=== PATIENT | male | born 1960 | race Caucasian/White ===

== ENCOUNTER → 2019-01-01 | Outpatient (CLI) | payer OTHER | LOC: M.RAD 10:31 | DX: M18.9 Osteoarthritis of first carpometacarpal joint, unspecified (principal); M19.042 Primary osteoarthritis, left hand; M19.041 Primary osteoarthritis, right hand; M19.071 Primary osteoarthritis, right ankle and foot; M19.072 Primary osteoarthritis, left ankle and foot; M77.52 Other enthesopathy of left foot and ankle; M77.51 Other enthesopathy of right foot and ankle ==

== ENCOUNTER → 2019-02-23 | Outpatient (CLI) | payer OTHER ==
[~2019-02-23] MED LIST: AZULFIDINE500 MG PO; CELEBREX 200 M200 M1 PO; HYDROCODONE-AP1 EA11 PO; LIPITOR40 MG PO; NEURONTIN 300300 M1 PO; NORCO 5-325 TA1 EAC1 PO; PRINIVIL10 MG PO
--- NOTE | ~2019-02-23 | PAINCON ---
[address] [address] PAIN MANAGEMENT CONSULTATION Name: ABBI KINCAID [id number] Admission: 02/23/19 Attend Phys: Tobias Núñez MD Discharge: Date of : 64 Report #: [id number] THIS REPORT FOR: //name// CC: Breanna Núñez DATE OF SERVICE: 02/23/2019 CHIEF COMPLAINT: Arthritic pain, which is quite severe. HISTORY OF PRESENT ILLNESS: The patient is a 58-year-old gentleman who has been referred to the pain clinic. He has quite a severe case of arthritis. He has pain and discomfort in his hands. 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 He is experiencing knee pain, pain in his feet, toes, spine and other joints. His pain has been quite problematic since 2018. He does have a family history of arthritic problems. His mother had it and his brother has pain as well. He finds that his pain is somewhat overwhelming. He describes it as constant in his hands, feet, back and shoulder blades. He states that he feels like he pops and feels like he is wrapped in yan wire. Pain is worse when he is moving. Pain improves somewhat when he is sitting still. He describes it as continuous, steady, constant, rhythmic, burning, aching, crushing, throbbing, sharp and stabbing. He rates it as a 6/10 today, can rise to the level of 8-9/10. ALLERGIES: No known drug allergies. CURRENT MEDICATIONS: Hydrocodone 5/325 mg one p.o. t.i.d., Celebrex 200 mg, Lipitor 40 mg, lisinopril 10 mg and sulfasalazine 500 mg 4 times daily. PAST MEDICAL HISTORY: 1. Connective tissue disease. 2. Possible rheumatoid arthritis and osteoarthritis runs in the family. 3. Hyperlipidemia. 4. Hypertension. 5. Pre-diabetic diet. PAST SURGICAL HISTORY: Bilateral total knee replacements. 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 He is working at this juncture. states he is self-employed. REVIEW OF SYSTEMS: Generally good health, fatigue, weakness, wears glasses, ringing in the ears/hearing loss, swelling of feet, ankles, joint pain, joint stiffness, weakness of joint muscles, muscle pain and cramps, back pain, difficulty walking. LABORATORY DATA: No new laboratory values are [place] [address] PAIN MANAGEMENT CONSULTATION Name: ABBI KINCAID Room: [facility]#: [id number] Admission: 02/23/19 Attend Phys: Tobias Núñez MD Discharge: Date of : 64 Report #: [id number] interview. PAIN CLINIC ASSESSMENT AND PQRS: 1. The patient has findings somewhat consistent with osteoarthritis and is being treated by a solar system installer. 2. Height 6 feet 0 inches, weight 246 pounds, BMI is 33.5. 3. Vital Signs: Blood pressure 141/83, heart rate 71, respiratory rate 16, room air saturation is 94%, temperature 98.2. 4. Pain intensity 10. 5. Fall history: The patient has not fallen in the last 3 months. 6. Blood thinner. The patient is not on a blood thinning medication. 7. Hypertension. The patient is being treated for hypertension. 8. Opioids greater than 6 weeks. The patient received medications for the last few weeks for pain control from his primary. 9. Risk assessment tool, low for opioid use. 10. Functional assessment tool. 11. Recreational drug use: The patient denies. 12. Tobacco: The patient smokes 1 pack of cigarettes per day. The patient has a 40-pack smoking year history. 13. Alcohol. The patient drinks about 15 alcoholic beverages per week. PHYSICAL EXAMINATION: GENERAL: The patient is a well-developed, well-nourished white male. Appears his stated age. He is alert and oriented x 3. His affect is appropriate. Speech is fluent. HEENT: Normocephalic, atraumatic. Extraocular eye muscles intact. Sclerae nonicteric. Mucous membranes moist. NECK: Without adenopathy or JVD. HEART: Regular rate. ABDOMEN: Nontender. EXTREMITIES: Upper extremity muscle strength judged to be 5-/5 for the major muscle groups in the upper extremity. The patient has some soreness in the first three knuckles. He has some pain and discomfort in the mid portion of his back, which appears to be musculoskeletal. He has pain and discomfort in his knees bilaterally. He has the perception of swelling in his feet are about to "____." IMPRESSION: 1. Mixed connective tissue disease. 2. Possible rheumatoid arthritis and osteoarthritis runs in the family. 3. Hyperlipidemia. 4. Hypertension. 5. Pre-diabetic diet. RECOMMENDATIONS: We discussed treatment options. The patient states that he has noticed that his pain started and worsen over about a year ago. He feels [address] [address] PAIN MANAGEMENT CONSULTATION Name: ABBI KINCAID [facility]#: [id number] Admission: 02/23/19 Attend Phys: Tobias Núñez MD Discharge: Date of : 64 Report #: [id number] overall that it is getting worse. He has been seen by a solar system installer. He has been started on a medication, which may take some time to show efficacy. 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 He notes some swelling and discomfort in his hands and discomfort in the area of his index, middle and ring knuckles. He has pain in the lower portion of his back. He has pain in the mid portion in the lumbar portion of his back. He underwent a steroid injection in the buttocks area, noticed some increase in severe cramping per his report after the shot. He had some similar discomfort with steroids by mouth. Notes that he awoke and had difficulty sleeping after use of these steroids. He felt that his mind was going 110 miles per hour. We will have the patient try gabapentin/Neurontin. This medication has been helpful in a number of pain conditions. We will have the patient try it at 300 mg 1 p.o. t.i.d. This will be increased on a very slow pace given his other problems with medications in the past. Gabapentin has been associated with some swelling in the lower extremity. If he notes worsening of the swelling in his lower extremity he will stop taking the medication. He will also be provided hydrocodone 7.5 mg 1 p.o. q.i.d. to help with this chronic pain. Hopefully, the medications provided by the solar system installer will become more effective in the near future. We would like to thank you for letting us participate in his care. He will call us if he has any untoward problems or concerns. By: [id number]. Prince Núñez MD /nt
== END ==
LOC: M.PC 05:21
DX: M35.1 Other overlap syndromes (principal); E78.5 Hyperlipidemia, unspecified; I10 Essential (primary) hypertension; F17.210 Nicotine dependence, cigarettes, uncomplicated; Z96.653 Presence of artificial knee joint, bilateral; Z79.891 Long term (current) use of opiate analgesic; Z79.899 Other long term (current) drug therapy; Z72.89 Other problems related to lifestyle

== ENCOUNTER → 2019-03-23 | Outpatient (CLI) | payer OTHER ==
[~2019-03-23] MED LIST changes: +HYDROCODON-ACE1 EAC5 PO; +NEURONTIN 400400 M1 PO
--- NOTE | 2019-03-24 09:09 | PAINCON ---
[address] [address] PAIN MANAGEMENT CONSULTATION Name: ABBI KINCAID Room: [facility].#: [id number] Admission: 03/23/19 Attend Phys: Tobias Núñez MD Discharge: Date of : 64 Report #: [id number] THIS REPORT FOR: //name// CC: Breanna Núñez DATE OF SERVICE: 03/23/2019 CHIEF COMPLAINT: Continued significant pain and arthritic discomfort. HISTORY: The patient is a 58-year-old gentleman who has been followed in the pain clinic. As you recall, he suffers from pretty severe arthritis. He has pain in his hands and knees. 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 He rates his pain in the morning at about 4, by the time 3:30 arise he rates it as a 7-8/10. He has had no complications from the gabapentin medication. Feels that there has been slight improvement in the pain with use of the hydrocodone. He states that he is scheduled to see a branch customer service representative in the near future. He is trying to decrease the amount of tobacco that he consumes as well as decreasing use of alcoholic beverages. ALLERGIES: No known drug allergies. CURRENT MEDICATIONS: Hydrocodone 7.5/325 one p.o. t.i.d., Celebrex 200 mg, Lipitor 40 mg, lisinopril 10 mg, sulfasalazine 500 mg 4 times daily, gabapentin 300 mg 1 p.o. t.i.d. PAIN CLINIC ASSESSMENT AND PQRS: 1. The patient has some findings consistent with osteoarthritis and rheumatoid arthritis. 2. Height 6 feet 0, weight 250 pounds, BMI is 34. 3. Vital Signs: Blood pressure 143/86, heart rate 74, respiratory rate 20, room air saturation 95%, temperature is 98.8. 4. Pain intensity 4/10. 5. Fall history: The patient has not fallen in the last 3 months. 6. Blood thinner. The patient is not on a blood thinning medication. 7. Hypertension. The patient is being treated for hypertension. 8. Opioids greater than 6 weeks. The patient [facility]his primary physician. 9. Risk assessment tool, low for opioid use. 10. Functional assessment tool, low for opioid use. 11. Recreational drug use. The patient denies. 12. Tobacco: The patient smokes 1 pack of cigarettes per day. The patient has a 40 year smoking history. 13. Alcohol: The patient drinks about alcoholic beverages per week. [place] [address] PAIN MANAGEMENT CONSULTATION Name: ABBI KINCAID Room: [facility]#: [id number] Admission: 03/23/19 Attend Phys: Tobias Núñez MD Discharge: Date of : 64 Report #: [id number] PHYSICAL EXAMINATION: GENERAL: The patient is a well-developed, well-nourished white male. Appears his stated age. He is alert and oriented x 3. His affect is appropriate. Speech is fluent. HEENT: Normocephalic, atraumatic. Extraocular eye muscles intact. Sclerae nonicteric. Mucous membranes are moist. NECK: Without adenopathy or JVD. HEART: Regular rate. ABDOMEN: Nontender. EXTREMITIES: Upper extremity muscle strength judged to be 5-/5 for the major muscle groups in the upper extremity. The patient has soreness in his first three knuckles. Has pain discomfort in the mid portion of his back. Has pain and discomfort in his knees bilaterally. Has notes some swelling and perception swelling in his feet. IMPRESSION: 1. Mixed connective tissue disease. 2. Possibly rheumatoid arthritis and osteoarthritis, which runs in his family. 3. Hyperlipidemia. 4. Hypertension. 5. Prediabetic diet. RECOMMENDATIONS: We discussed treatment options with the patient. At this juncture, we will continue with his medications. The patient has not noticed a significant improvement in his pain. We will have the patient try hydrocodone 10 mg 1 p.o. t.i.d. to help with his pain. He will also be provided gabapentin 400 mg t.i.d. We will increase his dose to 1200 mg per day. It is sometimes felt that the gabapentin needs to at least fluoroscopy was brought to the level of 1800 mg before one would consider it failure. The patient will be given a script for the gabapentin 400 mg 1 p.o. t.i.d. as well as hydrocodone 10/325 one p.o. q.i.d. Hopefully, the patient will start noticed CTA of his condition. He states that he is going to follow up in the near future with his physician regarding the rheumatoid arthritis medication. We would like to thank you for letting us participate in his care. We hope he continues to improve. <ELECTRONICALLY SIGNED> By: Tobias Núñez MD 03/24/19 [id number]. Prince Núñez MD /KESHIA
== END ==
LOC: M.PC 05:24
DX: E78.5 Hyperlipidemia, unspecified (principal); I10 Essential (primary) hypertension; M35.1 Other overlap syndromes

== ENCOUNTER → 2019-04-22 | Outpatient (CLI) | payer OTHER ==
[~2019-04-22] MED LIST changes: +HYSINGLA ER40 MG PO
--- NOTE | ~2019-04-22 | PAINCON ---
[address] [address] PAIN MANAGEMENT CONSULTATION Name: ABBI KINCAID Room: [facility].#: [id number] Admission: 04/22/19 Attend Phys: Tobias Núñez MD Discharge: Date of : 64 Report #: [id number] THIS REPORT FOR: //name// CC: Breanna Núñez DATE OF SERVICE: 04/22/2019 CHIEF COMPLAINT: Pain in the hands, knees, feet, toes and back. HISTORY: The patient is a 58-year-old gentleman who has been followed in the pain clinic. As you recall, he suffers from severe arthritis. He has findings, which are present in his hands and knees. 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 Notes that his pain can be quite problematic and limiting. He is scheduled to see a heavy equipment service technician in the future. The costs of the biologic agents have been problematic. States that about he feels that financially $1300 a month is somewhat out of his range at this juncture. He continues to try to decrease use of his tobacco and rates his pain as 4/10 at this juncture. Notes that the pain continues to wax and wane over the day. ALLERGIES: No known drug allergies. CURRENT MEDICATIONS: Hydrocodone 7.5 mg 1 p.o. t.i.d., Celebrex 200 mg, Lipitor 40 mg, lisinopril 10 mg, sulfasalazine 500 mg 4 times daily, gabapentin 300 mg 1 p.o. t.i.d. PAIN CLINIC ASSESSMENT AND PQRS: 1. The patient has findings consistent with osteoarthritis and rheumatoid arthritis. 2. Height 6 feet 0 inches, weight 251 pounds, BMI is 34.2. 3. Vital signs: Blood pressure 135/79, heart rate 77, respiratory rate 16, room air saturation 94%, temperature 98.1. 4. Pain intensity 4/10. 5. Fall history: The patient has not fallen in the last 3 months. 6. Blood thinner. The patient is not on a blood thinning medication. 7. Hypertension. The patient is being treated for hypertension. 8. Opioids greater than 6 weeks. 9. The patient receives medication from [facility] his primary physician. 10. Risk assessment tool, low for opioid use. 11. Functional assessment tool. 12. Recreational drug use: The patient denies. 13. Tobacco: The patient smokes 1 pack of cigarettes per day. The patient has been smoked for last 40 years. 14. Alcohol: The patient drinks alcoholic beverages weekly. He [place] [address] PAIN MANAGEMENT CONSULTATION Name: ABBI KINCAID Room: [facility]#: [id number] Admission: 04/22/19 Attend Phys: Tobias Núñez MD Discharge: Date of : 64 Report #: [id number] PHYSICAL EXAMINATION: GENERAL: The patient is a well-developed, well-nourished white male. Appears his stated age. He is alert and oriented x 3. His affect is appropriate. Speech is fluent. HEENT: Normocephalic, atraumatic. Extraocular eye muscles intact. Sclerae nonicteric. Mucous membranes are moist. NECK: Without adenopathy or JVD. HEART: Regular rate. ABDOMEN: Nontender. EXTREMITIES: Upper extremity muscle strength judged to be 5-/5 for the major muscle groups in the upper extremity. The patient has soreness in his hands. This involves his first three knuckles. Has some discomfort in his back. Has discomfort in his knees bilaterally. Has noted some swelling and perception of swelling in his feet. IMPRESSION: 1. Mixed connective tissue disease. 2. Probable rheumatoid arthritis and osteoarthritis, which runs in his family. 3. Hyperlipidemia. 4. Hypertension. 5. Prediabetic diet. RECOMMENDATIONS: We discussed treatment options with the patient. Risks and benefits of opioid medications have been described and discussed. They can become less effective over time secondary to development of tolerance. The patient is aware that 70,000 people last year as a result of overdosing for medications. He feels that the medications are helpful. They enable him to be more active. They helped with his pain during his working hours. He does not have any problems with his sensorium. He feels that he is able to think clearly. These medications help decrease pain and discomfort. The patient has complained of his medications level dropping. We have discussed the benefits of a more confident dosing of medications. One of the newer medications Hysingla ER is a once a day dosing medication. Oftentimes, the patients what say that they have less ____ up and downs of associated with their opioids. We will write a script for this medication. Hopefully, his insurance carrier would allow him to try this medication and it would provide him benefits of a more controlled release of medication and more comfort during the course of the day. A script for Hysingla 40 mg 30 tablets have been written. He will contact his insurance carrier and hopefully they will be able to accommodate him with this medication and that he will find more benefit from it. [address] [address] PAIN MANAGEMENT CONSULTATION Name: ABBI KINCAID Room: [facility]#: [id number] Admission: 04/22/19 Attend Phys: Tobias Núñez MD Discharge: Date of : 64 Report #: [id number] We would like to thank you for letting us participate in his care. We hope he continues to improve. By: [id number]. Prince Núñez MD /KESHIA
== END ==
LOC: M.PC 05:07
DX: M35.1 Other overlap syndromes (principal); E78.5 Hyperlipidemia, unspecified; M19.90 Unspecified osteoarthritis, unspecified site; I10 Essential (primary) hypertension; E11.9 Type 2 diabetes mellitus without complications; F17.210 Nicotine dependence, cigarettes, uncomplicated; Z79.899 Other long term (current) drug therapy; Z79.891 Long term (current) use of opiate analgesic

== ENCOUNTER → 2019-05-20 | Outpatient (CLI) | payer OTHER ==
[~2019-05-20] MED LIST changes: +HUMIRA40 MG/0.8 SUBQ; +NEURONTIN600 MG PO
--- NOTE | ~2019-05-20 | PAINCON ---
[address] [address] PAIN MANAGEMENT CONSULTATION Name: ABBI KINCAID [facility] [id number] Admission: 05/20/19 Attend Phys: Tobias Núñez MD Discharge: Date of : 64 Report #: [id number] THIS REPORT FOR: //name// CC: Breanna Martines DATE OF SERVICE: 05/20/2019 PRIMARY PHYSICIAN: Dr. Breanna Sanders. CHIEF COMPLAINT: Still having a lot of arthritis pain. HISTORY: The patient is a 58-year-old gentleman who has been seen in the pain clinic because of hand, knee, feet, toes, and back pain. He returns today indicating that his pain continues to be problematic. He evaluated the long-acting hydrocodone medication. He found that it was quite expensive. He would like to continue with the current hydrocodone medication. Weather pattern has changed. It has been cold outside. He has noticed an increase in pain and discomfort. He has noted some problems with his hand. Notes that his finger or fingers can become cold. After they become cold, they then became white. It was followed by reperfusion and the hands can become a little bit more reddened. This happens in his feet as well. He has noted some increased pain and shooting pain down into his left foot. Finds that he is awakened often by the chronic pain. Notes that by the afternoon between 1 o'clock and 5 o'clock his pain becomes more problematic. Notes that the pain continues to progress as the week goes on. He feels that his pain is about 50% improved with his current medical regimen. Cold temperatures, walking, standing activities, bending and lifting can be problematic. 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 He is not having a significant problem with his medications. ALLERGIES: No known drug allergies. CURRENT MEDICATIONS: Hydrocodone 10 mg one p.o. t.i.d., Celebrex 200 mg, Lipitor 40 mg, lisinopril 10 mg, sulfasalazine 500 mg 4 times daily and gabapentin 300 mg t.i.d. PAIN CLINIC ASSESSMENT AND PQRS: 1. The patient has some findings consistent with osteoarthritis and rheumatoid arthritis. 2. Height 6 feet 0 inch, weight 250 pounds, BMI is 34.0. 3. Vital signs: Blood pressure 147/78, heart rate 69, respiratory rate 16, room air saturation is 95%, temperature 98.3. 4. Pain intensity 4/10. 5. Fall history: The patient has not fallen in the last 3 months. 6. Blood thinner. The patient is not on [place] [address] PAIN MANAGEMENT CONSULTATION Name: ABBI KINCAID Room: [facility]#: [id number] Admission: 05/20/19 Attend Phys: Tobias Núñez MD Discharge: Date of : 64 Report #: [id number] 7. Hypertension. The patient is being treated for hypertension with lisinopril. 8. Opioids greater than 6 weeks. The patient received medication from [facility] pain clinic. 9. Risk assessment tool, low for opioid use. 10. Functional assessment tool has been reviewed. 11. Recreational drug use. The patient denies use of recreational drugs. 12. Tobacco: The patient smokes a pipe. He does not vape. 13. Alcohol: The patient has decreasing his alcohol intake. PHYSICAL EXAMINATION: GENERAL: The patient is a well-developed, well-nourished white male. Appears his stated age. He is alert and oriented x 3. His affect is appropriate. Speech is fluent. HEENT: Normocephalic, atraumatic. Extraocular eye muscles intact. Sclerae nonicteric. Mucous membranes are moist. The patient is accompanied by his . NECK: Without adenopathy or JVD. HEART: Regular rate. ABDOMEN: Nontender. MUSCULOSKELETAL: Upper extremity muscle strength judged to be 5-/5 for the major muscle groups in the upper extremity. The patient notes some soreness in his hands. Has swelling and nodules in the area of the first three knuckles. Has, on occasion, noticed discoloration in his finger which turned white. States that it gets cold. It gets numb. The patient has discomfort in his knees. He has had the knee replaced. The patient has some perception of swelling in his feet. IMPRESSION: 1. Mixed connective tissue disease. 2. Probable rheumatoid arthritis and osteoarthritis-it runs in his family. 3. Hyperlipidemia. 4. Hypertension. 5. Prediabetic diet. 6. Changes of color in his fingers, which may be Raynaud's symptoms. RECOMMENDATIONS: We discussed treatment options with the patient. At this juncture, we will continue with his medication. We will increase the gabapentin slightly. We will have the patient take 600 mg tablets, he will take one 600 mg in the morning, one in midday, and a 300 mg tablet at night for a total of 1500 mg. He will try this and noticed efficacy. If he has any problems with his thinking or problems with the medication, he will decrease it and continue at the 1200 mg amount. He will also continue with Celebrex and nonsteroidal anti-inflammatory medication. He will use the hydrocodone 10 mg one p.o. every 4-6 hours p.r.n. as needed. The patient states that he is going to see his physician in the near future in regards to his arthritis. [place] [address] PAIN MANAGEMENT CONSULTATION Name: ABBI KINCAID Room: [facility].#: [id number] Admission: 05/20/19 Attend Phys: Tobias Núñez MD Discharge: Date of : 64 Report #: [id number] has any concerns. We would like to thank you for letting us participate in his care. The patient is taking the medication as prescribed. By: [id number]. Prince Núñez MD /nt
== END ==
LOC: M.PC 04:45
DX: M35.9 Systemic involvement of connective tissue, unspecified (principal); I10 Essential (primary) hypertension; E78.5 Hyperlipidemia, unspecified

== ENCOUNTER → 2019-06-15 | Outpatient (CLI) | payer OTHER ==
--- NOTE | ~2019-06-15 | PAINCON ---
[facility] [address] [place] [address] PAIN MANAGEMENT CONSULTATION Name: ABBI KINCAID Room: [facility].#: [id number] Admission: 06/15/19 Attend Phys: Tobias Núñez MD Discharge: Date of : 64 Report #: [id number] THIS REPORT FOR: //name// CC: Marlen Segura DATE OF SERVICE: 06/15/2019 CHIEF COMPLAINT: Pain because of arthritis. HISTORY: The patient is a 58-year-old gentleman who has been seen in the pain clinic because of chronic pain. He has had pain, which has been more problematic over the last year. It involves both his hands as well as his feet. He did go on vacation to [place]. He did notice an improvement in his pain while he was in [place]. He feels that the pain has increased since he has returned back to [place]. He describes the pain as bad. Rates his pain as a 4/10. He notes that with the hydrocodone it improved on his pain. His pain is about 50% problematic. 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 He has returned today with the hopes of renewing his medication. The cold weather has been more problematic for an increase in his pain and discomfort. ALLERGIES: No known drug allergies. CURRENT MEDICATIONS: Hydrocodone one p.o. t.i.d., Celebrex 200 mg, Lipitor 40 mg, lisinopril 10 mg, sulfasalazine 500 mg 4 times daily, gabapentin 300 mg t.i.d. PAIN CLINIC ASSESSMENT AND PQRS: 1. The patient does have some findings consistent with osteoarthritis and rheumatoid arthritis. 2. Height 6 feet 0 inches, weight 248 pounds, BMI is 33.0. 3. Vital signs: Blood pressure 142/84, heart rate 64, respiratory rate 16, room air saturation 95%, temperature 97.9. 4. Pain intensity 09/09. 5. Fall history: The patient has not fallen in the last 3 months. 6. Blood thinner. The patient is not on a blood thinning medication. 7. Hypertension. The patient is being treated for hypertension with lisinopril. 8. Opioids greater than 6 weeks. [facility]. 9. Risk assessment tool, low for opioid use. 10. Functional assessment tool reviewed. 11. Recreational drug use: [place] [address] PAIN MANAGEMENT CONSULTATION Name: ABBI KINCAID Room: [facility]#: [id number] Admission: 06/15/19 Attend Phys: Tobias Núñez MD Discharge: Date of : 64 Report #: [id number] 12. Tobacco: The patient denies smoking. He does not vape. He does use a pipe and is decreasing his tobacco use. 13. Alcohol. The patient denies frequent use of alcoholic beverages. PHYSICAL EXAMINATION: GENERAL: The patient is a well-developed, well-nourished white male. Appears his stated age. He is alert and oriented x 3. His affect is appropriate. Speech is fluent. HEENT: Normocephalic, atraumatic. Extraocular eye muscles intact. Sclerae nonicteric. Mucous membranes are moist. NECK: Without adenopathy or JVD. The patient is accompanied by his . HEART: Regular rate. ABDOMEN: Nontender. EXTREMITIES: Upper extremity muscle strength judged to be 5-/5 for the major muscle groups in the upper extremity. He does note some soreness in his hands. He does have nodules developing in the first three knuckles. He does occasionally note some discoloration of his fingers, which turns white when he gets cold. The patient has had a knee replacement. He does perceive some swelling in his feet. IMPRESSION: 1. Mixed connective tissue disease. 2. Probable rheumatoid arthritis with osteoarthritis, which runs in his family. 3. Hyperlipidemia. 4. Hypertension. 5. Prediabetic diet. 6. Changes in the hands from white blue to red, which is not inconsistent with Raynaud's syndrome. RECOMMENDATIONS: We will continue with the patient's current medical regimen. We have discussed the risk and benefits of opioid use. The patient has taken the medication as prescribed. He is aware that opioid medications can become less effective as time goes on. We will have the patient continue with the gabapentin medication. We will increase it to 600 mg t.i.d. The patient will also continue with the hydrocodone medication. He will take 1 tablet p.o. q.i.d. We will continue with the lisinopril; hopefully, this will be helpful with the Raynaud's type syndrome that he is having in his hands or one might consider the use of Norvasc in the future. By: [id number]. Prince Núñez MD /celso
== END ==
LOC: M.PC 08:50
DX: M06.9 Rheumatoid arthritis, unspecified (principal); I10 Essential (primary) hypertension; E78.5 Hyperlipidemia, unspecified

== ENCOUNTER → 2019-07-13 | Outpatient (CLI) | payer OTHER ==
--- NOTE | 2019-07-16 08:24 | PAINCON ---
[address] [address] PAIN MANAGEMENT CONSULTATION Name: ABBI KINCAID Room: [facility] Jesus.Kelli.#: [id number] Admission: 07/13/19 Attend Phys: Tobias Núñez MD Discharge: Date of : 64 Report #: [id number] THIS REPORT FOR: //name// cc: Breanna Sanders Maggie M. DO ~ THIS REPORT FOR: //name// CC: Marlen Martines DATE OF SERVICE: 07/13/2019 FOLLOWUP: The medication is helping, but I am still having pain. HISTORY: The patient is a 58-year-old gentleman who has been followed in the pain clinic because of chronic pain. He has pain in his knees. He has had bilateral knee replacements. Has pain associated with his hands and with his feet. This pain appears to be a pain associated with arthritis. He has some pain consistent with osteoarthritis as well as rheumatoid arthritis. He feels that his pain is improved by about 50% with his current medical use. 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 He notes that certain activities can be more problematic, particularly in the morning or as the day progresses because of the pain in his hands and feet. Does note that there is a slight amount of fogging with his medications. He feels that the gabapentin medication is helpful and would like to continue its use. States that it does not clog his ability to think clearly. He is able to work with machinery and other items without significant concern of injury. He is not feeling well today. Feels that he might have a little bit of fluid in his chest. He is scheduled to see his primary care physician today. He has returned today with the hopes of renewing his medications of hydrocodone. Notes that the cold temperature, walking, sitting, standing, lifting and bending can be problematic. ALLERGIES: No known drug allergies. CURRENT MEDICATIONS: Hydrocodone 10/325 one p.o. t.i.d., Celebrex 200 mg, Lipitor 40 mg, lisinopril 10 mg, sulfasalazine 500 mg 4 times daily, gabapentin 600 mg t.i.d. PAIN CLINIC ASSESSMENT AND PQRS: 1. The patient has findings consistent with osteoarthritis and rheumatoid arthritis. 2. Height 6 feet 0 inch, weight 251 pounds, BMI is 34.5. 3. Temperature is 98.4, saturation 95%, blood pressure 124/73, pulse is 69, respiratory rate 18, pain intensity 4-5/10[place] [address] PAIN MANAGEMENT CONSULTATION Name: ABBI KINCAID Room: [facility]#: [id number] Admission: 07/13/19 Attend Phys: Tobias Núñez MD Discharge: Date of : 64 Report #: [id number] 4. Fall history: The patient has not fallen in the last 3 months. 5. Blood thinner. The patient is not on a blood thinning medication. 6. Hypertension. The patient is being treated for hypertension. 7. Opioids greater than 6 weeks. The [facility]. 8. Risk assessment tool, low for opioid use. 9. Functional assessment tool has been reviewed. 10. Recreational drug use: The patient denies. 11. Tobacco use. The patient does not vape. He does smoke a pipe. He is trying to decrease his use of tobacco. 12. Alcohol: The patient drinks alcoholic beverages about once a week. PHYSICAL EXAMINATION: GENERAL: The patient is a well-developed, well-nourished white male. Appears his stated age. He is alert and oriented x 3. His affect is appropriate. Speech is fluent. HEENT: Normocephalic, atraumatic. Extraocular eye muscles intact. Sclerae nonicteric. Mucous membranes are moist. The patient is accompanied by his . NECK: Without adenopathy. HEART: Regular rate. ABDOMEN: Nontender. CHEST: Generally clear to auscultation. The patient has a perception of possibility of fluid in his chest. EXTREMITIES: Upper extremity muscle strength judged to be 5-/5 for the major muscle groups in the upper extremity. The patient notes soreness in his hands. Has nodules developing on his first three knuckles. Occasionally, notes some discoloration of his fingers. They turn when it gets cold. The patient has had bilateral knee replacements. Perceives some swelling in his feet, has some neuropathic type pain. IMPRESSION: 1. Mixed connective tissue disease. 2. Probable rheumatoid arthritis and osteoarthritis runs in his family. 3. Hyperlipidemia. 4. Hypertension. 5. Prediabetic diet. 6. Changes in his hands from blue to red and might be consistent with Raynaud's syndrome. RECOMMENDATIONS: We discussed treatment options with the patient. At this juncture, we will continue with his medications. He finds that the hydrocodone medication is helpful. He is able to do more during the day with its use with less pain. Rates his pain improvement as about 50% with his current medical regimen. We will continue with 10 mg 1 p.o. q.i.d. The patient will also continue with gabapentin 600 mg 1 p.o. t.i.d. He has noted some sensory [facility] [address] [place] [address] PAIN MANAGEMENT CONSULTATION Name: ABBI KINCAID Room: [facility]#: [id number] Admission: 07/13/19 Attend Phys: Tobias Núñez MD Discharge: Date of : 64 Report #: [id number] changes, meaning he feels a little bit foggy, but relatively clear minded. 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 We may consider trying Lyrica to help with the pain in the future. Hopefully, this would decrease the feeling of brain fog. We will give this medication in adequate amount of time for a number of weeks to see whether or not he is able to feel less problems with it. We would like to thank you for letting us participate in his care. A script for his medications has been provided. <ELECTRONICALLY SIGNED> By: Tobias Núñez MD 07/16/19 0824 [id number] [id number]. Prince Núñez MD /nt
== END ==
LOC: M.PC 03:23
DX: L94.8 Other specified localized connective tissue disorders (principal); I10 Essential (primary) hypertension; E78.5 Hyperlipidemia, unspecified; Z79.899 Other long term (current) drug therapy

== ENCOUNTER → 2019-08-10 | Outpatient (CLI) | payer OTHER ==
--- NOTE | 2019-08-12 13:54 | PAINCON ---
[address] [address] PAIN MANAGEMENT CONSULTATION Name: ABBI KINCAID Room: [facility].#: [id number] Admission: 08/10/19 Attend Phys: Tobias Núñez MD Discharge: Date of : 64 Report #: [id number] THIS REPORT FOR: //name// cc: Breanna Sanders Maggie M. DO ~ THIS REPORT FOR: //name// CC: Breanna Martines DATE OF SERVICE: 08/10/2019 PRIMARY CARE PHYSICIAN: Breanna Sanders DO CHIEF COMPLAINT: Pain of arthritis in the feet, knees and hands. HISTORY OF PRESENT ILLNESS: The patient is a 59-year-old gentleman, who has been followed in the pain clinic because of chronic pain. He is experiencing arthritic pain involving his knees, hands and feet. This has been problematic since 2018. He has rheumatoid arthritis. He has been seeing a rigger apprentice. He did get some new insoles made for his shoes. He notes that there has been an improvement in his foot pain. He does experience some crushing and throbbing sensation. His meds are helpful. He has less problems with the gabapentin medication. All side effects have resolved. He feels that he is about 80% improved with his pain control. Pain can be at about 4 in the morning and rise to the level of 8-9 by the end of the day. 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 He is constantly active. He has returned today with the hopes of renewing his medications. He notes that the pain increases with cold temperatures. Walking, standing, bending, and lifting can be problematic. Rest and use of his medications are efficacious. ALLERGIES: No known drug allergies. CURRENT MEDICATIONS: Hydrocodone 10/325 one p.o. t.i.d., Celebrex 200 mg, Lipitor 40 mg, lisinopril 10 mg, sulfasalazine 500 mg q.i.d., gabapentin 600 mg t.i.d. PAIN CLINIC ASSESSMENT AND PQRS: 1. The patient has findings consistent with osteoarthritis and rheumatoid arthritis involving his hands, knees and feet. 2. The patient is treated for rheumatoid arthritis. 3. Height 6 feet 0, weight 250 pounds, BMI is 34.0. 4. Vital signs: Blood pressure 129/76, heart rate 65, respiratory rate 18, room air saturation 95, temperature 98.0. 5. Pain intensity, 09/09. [place] [address] PAIN MANAGEMENT CONSULTATION Name: ABBI KINCAID Room: [facility]#: [id number] Admission: 08/10/19 Attend Phys: Tobias Núñez MD Discharge: Date of : 64 Report #: [id number] 6. Fall history: The patient has not fallen since we saw him last. 7. Blood thinner. The patient is not on a blood thinning medication. 8. Hypertension. The patient is not being treated for hypertension. 9. Opioids greater than 6 weeks. The patient [facility] from [facility]. 10. Risk assessment tool: Low for opioid use. 11. Functional assessment tool: Has been reviewed. 12. Recreational drug use: The patient denies. 13. Tobacco: The patient denies use of tobacco. He does smoke a pipe. He is trying to decrease use of tobacco. 14. Alcohol: The patient drinks alcoholic beverages once a week. PHYSICAL EXAMINATION: GENERAL: The patient is a well-developed, well-nourished white male. Appears his stated age. He is alert and oriented x 3. His affect is appropriate. Speech is fluent. HEENT: Normocephalic, atraumatic. Extraocular eye muscles intact. Sclerae nonicteric. Mucous membranes are moist. NECK: Without adenopathy or JVD. HEART: Regular rate. ABDOMEN: Nontender. CHEST: Clear to auscultation. EXTREMITIES: Upper extremity muscle strength judged to be 5-/5 for the major muscle groups in the upper extremities. The patient notes soreness in his hands. Has development of nodules on his first 3 knuckles. Occasionally notes some discoloration in his fingers. Notes that this happens when they get cold. The patient has had bilateral knee replacements. Has swelling in his feet. Has some neuropathic complaints of pain. IMPRESSION: 1. Mixed connective tissue disease. 2. Probable rheumatoid arthritis and osteoarthritis, which runs in his family. 3. Hyperlipidemia. 4. Hypertension. 5. Prediabetic diet. 6. Changes in his hands, which might be consistent with Raynaud syndrome. RECOMMENDATIONS: We discussed treatment options with the patient. At this juncture, he feels his medications are helpful. He feels that the gabapentin medication seems to be helpful. His pain is rated as an 80% improvement with use of his current medical regimen. He is aware that opioid medications can become less effective as time goes on because of development of tolerance. He is not showing any signs of addiction. He has taken the medication as prescribed. We will continue with his gabapentin at 600 mg t.i.d. The possibility of increasing to 600 mg b.i.d. and 600 mg twice a day is an option in the future. We will continue with his current medications at this juncture. [facility] [address] [place] [address] PAIN MANAGEMENT CONSULTATION Name: ABBI KINCAID Room: [facility]..#: [id number] Admission: 08/10/19 Attend Phys: Tobias Núñez MD Discharge: Date of : 64 Report #: [id number] We would like to thank you for letting us participate in his care. A script for gabapentin 600 mg 1 p.o. t.i.d. has been provided. The patient will also continue with hydrocodone 10 mg 1 p.o. q.i.d. to help with his pain control. He is able to think clearly. 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 We would like to thank you for letting us participate in his care. We hope he continues to improve. <ELECTRONICALLY SIGNED> By: Tobias Núñez MD 08/12/19 1354 0907 1257N. Prince Núñez MD /nt
== END ==
LOC: M.PC 04:40
DX: M13.869 Other specified arthritis, unspecified knee (principal); M13.849 Other specified arthritis, unspecified hand; M46.80 Other specified inflammatory spondylopathies, site unspecified; E78.5 Hyperlipidemia, unspecified; M35.9 Systemic involvement of connective tissue, unspecified; I10 Essential (primary) hypertension; F11.20 Opioid dependence, uncomplicated; Z72.4 Inappropriate diet and eating habits; Z79.84 Long term (current) use of oral hypoglycemic drugs; Z79.899 Other long term (current) drug therapy

== ENCOUNTER → 2019-09-07 | Outpatient (CLI) | payer OTHER ==
--- NOTE | 2019-09-08 08:28 | PAINCON ---
[address] [address] PAIN MANAGEMENT CONSULTATION Name: ABBI KINCAID [facility] [id number] Admission: 09/07/19 Attend Phys: Tobias Núñez MD Discharge: Date of : 64 Report #: [id number] THIS REPORT FOR: //name// cc: Breanna Sanders Maggie M. DO ~ THIS REPORT FOR: //name// CC: Breanna Núñez DATE OF SERVICE: 09/07/2019 CHIEF COMPLAINT: "I have been working about 10 hours a day because of the fewer people on the job." HISTORY: The patient is a 59-year-old gentleman who has been followed in the pain clinic because of chronic pain. As you may recall, he suffers from osteoarthritis. He has had both knees replaced. He also suffers from rheumatoid arthritis and has been followed by a furnace cooler. He has been much busier given the coronavirus situation. 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 He has had to work longer hours. As a result of the worsening of his pain he finds himself as in an unpleasant placed because of the severity of his pain. He notes that his pain continues to increase as time as the day goes on. He rates his pain as 10/10 by the time he gets home. He has found himself less energetic because of the chronic pain. He feels that the medication continues to be helpful. He would like to have his medications renewed. He is not having any problems with his medications. They continue to be beneficial. ALLERGIES: No known drug allergies. CURRENT MEDICATIONS: Hydrocodone 10/325 mg one p.o. t.i.d., Celebrex 200 mg, Lipitor 40 mg, lisinopril 100 mg, sulfasalazine 500 mg q.i.d., and gabapentin 600 mg t.i.d. PAIN CLINIC ASSESSMENT AND PQRS: 1. The patient has some findings of osteoarthritis and rheumatoid arthritis involving his hands, knees and feet. The patient is being treated by furnace cooler. 2. Height 6 feet 0, weight 253 pounds, BMI is 33.4. 3. Vital signs: Blood pressure 137/81, heart rate 72, respiratory rate 16, room air saturation 95%, temperature 97.9. 4. Pain score 7/10. 5. Fall history: The patient has not fallen in the last 3 months. 6. Blood thinner. The patient is not on a blood thinning medication. 7. Hypertension. The patient [place] [address] PAIN MANAGEMENT CONSULTATION Name: ABBI KINCAID Room: [facility]#: [id number] Admission: 09/07/19 Attend Phys: Tobias Núñez MD Discharge: Date of : 64 Report #: [id number] 8. Opioids greater than 6 weeks. The patient receives his medication from the pain clinic. 9. Risk assessment tool, low for opioid use. 10. Functional assessment tool reviewed. 11. Recreational drug use. The patient denies use of recreational drugs. 12. Tobacco: The patient does smoke. 13. Alcohol: The patient is decreasing his alcohol use. He has not drunk in the last month. Usually, he drinks about once weekly. PHYSICAL EXAMINATION: GENERAL: The patient is a well-developed, well-nourished white male. Appears his stated age. He is alert and oriented x 3. His affect is appropriate. Speech is fluent. He is unaccompanied. HEENT: Normocephalic, atraumatic. Extraocular eye muscles intact. Sclerae nonicteric. Mucous membranes are moist. NECK: Without adenopathy or JVD. HEART: Regular rate. ABDOMEN: Nontender. LUNGS: Clear to auscultation. EXTREMITIES: Upper extremity muscle strength judged to be 5-/5 for the major muscle groups in the upper extremity. The patient has soreness in his hands. He has begun to develop nodules in his third knuckles. He notes some discoloration occasionally of his fingers. He has had bilateral knee replacements. He complains of some swelling in his feet. He has some neuropathic complaints as well. IMPRESSION: 1. Mixed connective tissue disease. 2. Probable rheumatoid arthritis and osteoarthritis, which runs in his family. 3. Hyperlipidemia. 4. Hypertension. 5. Pre-diabetic diet. 6. Changes in the hand consistent with Raynaud's syndrome in the winter. RECOMMENDATIONS: We discussed treatment options with the patient. At this juncture, we will continue with his current medications. A script for his medications has been provided. He will continue with gabapentin 600 mg 1 p.o. t.i.d. The patient will also continue with hydrocodone 10/325 mg one p.o. 4 - 6 hours p.r.n., total of 120 tablets have been provided. The patient will call us if he has any concerns. He is aware that opioid medications can become less effective as time goes on secondary to the development of tolerance. At this point, we will continue with his medications. He will call us if he has any [facility] [address] [place] [address] PAIN MANAGEMENT CONSULTATION Name: GALE KINCAIDBea Bird Room: [facility]#: [id number] Admission: 09/07/19 Attend Phys: Tobias Núñez MD Discharge: Date of : 64 Report #: [id number] concerns. The patient will continue to monitor with the CDC recommendations to decrease the likelihood of being struck down with COVID-19. <ELECTRONICALLY SIGNED> By: Tobias Núñez MD 09/08/19 0828 1341 1356N. Prince Núñez MD /nt
== END ==
LOC: M.PC 04:54
DX: G89.4 Chronic pain syndrome (principal); M19.90 Unspecified osteoarthritis, unspecified site; M35.1 Other overlap syndromes; E78.5 Hyperlipidemia, unspecified; I10 Essential (primary) hypertension; Z79.899 Other long term (current) drug therapy

== ENCOUNTER → 2019-10-05 | Outpatient (CLI) | payer OTHER ==
--- NOTE | 2019-10-13 17:08 | PAINCON ---
[facility] [address] [place] [address] PAIN MANAGEMENT CONSULTATION Name: ABBI KINCAID Room: [facility] KARLOS JesusFrancis.#: [id number] Admission: 10/05/19 Attend Phys: Tobias Núñez MD Discharge: Date of : 64 Report #: [id number] THIS REPORT FOR: //name// cc: Breanna Sanders Maggie M. DO ~ THIS REPORT FOR: //name// CC: Breanna Núñez DATE OF SERVICE: 10/05/2019 CHIEF COMPLAINT: The pain has worsened. I have been working more hours. HISTORY: The patient is a 59-year-old gentleman who has been followed in the pain clinic. Because of rheumatoid arthritis, he has significant pain. He has been more active at this juncture. He has continued to work longer hours. He has been followed by his roustabout crew leader. He feels that his medications are helpful. He would like to continue them. He is not having any untoward effects from the medications. Overall, things are going reasonably well. He is not having any problems with the gabapentin medication. He would like to continue its use. He rates his pain as a 7/10 today. Pain is quite problematic, particularly in his hands, knees and on the top of his feet. He feels exhausted by the end of the day. He does feel that he is about 50% improved. He has been taking the Humira for the last 2-1/2 months. ALLERGIES: No known drug allergies. CURRENT MEDICATIONS: Hydrocodone 10/325 one p.o. 5 times daily, Celebrex 200 mg, Lipitor 40 mg, lisinopril 100 mg, sulfasalazine 500 mg q.i.d., gabapentin 600 mg t.i.d. PAIN CLINIC ASSESSMENT/PQRS: 1. The patient has some findings of osteoarthritis and rheumatoid arthritis. It involves his hands, feet and knees. He is being treated by roustabout crew leader. 2. Height 6 feet 0, weight 251 pounds, BMI is 34. 3. Vital signs: Blood pressure 142/86, heart rate 69, respiratory rate 16, room air saturation 96%, temperature 98.3. 4. Pain intensity is 7/10. 5. Fall history: The patient has not fallen in the last 3 months. 6. Blood thinner. The patient is not on a blood thinning medication. 7. Hypertension. The patient is being treated for hypertension. 8. Opioids greater than 6 weeks. The patient receives medication from the pain clinic. 9. Risk assessment tool, low for opioid use. 10. Functional [place] [address] PAIN MANAGEMENT CONSULTATION Name: ABBI KINCAID Room: [facility]#: [id number] Admission: 10/05/19 Attend Phys: Tobias Núñez MD Discharge: Date of : 64 Report #: [id number] 11. Recreational drug use. The patient denies use of recreational drugs. 12. Tobacco: The patient does not smoke. 13. Alcohol: The patient is decreasing alcohol use. Drinks about once weekly. PHYSICAL EXAMINATION: GENERAL: The patient is a well-developed, well-nourished white male. Appears his stated age. He is alert and oriented x 3. His affect is appropriate. Speech is fluent. HEENT: Normocephalic, atraumatic. Extraocular eye muscles intact. Sclerae nonicteric. Mucous membranes are moist. NECK: Without adenopathy or JVD. HEART: Regular rate. ABDOMEN: Nontender. LUNGS: Generally clear to auscultation. EXTREMITIES: Upper extremity muscle strength judged to be 5-/5 for the major muscle groups in the upper extremity. The patient has some soreness involving his hands. Has developed nodules on the third knuckle. Notes some increased discoloration of his fingers. Has had bilateral knee replacements. Continues to complain of some swelling in his feet. Has some discomfort on top of his feet. Also has some neuropathic complaints. IMPRESSION: 1. Mixed connective tissue disease. 2. Probable rheumatoid arthritis and osteoarthritis, which runs in his family. 3. Hyperlipidemia. 4. Hypertension. 5. Prediabetic diet. 6. Findings in his hands consistent with Raynaud's syndrome, particularly in the winter. RECOMMENDATIONS: We discussed treatment options with the patient. At this juncture, we will continue with his medications. He finds his medications are helpful. He feels that the gabapentin is helpful. He is able to think clearly with his medications. He feels that the hydrocodone 10 mg 1 p.o. 4 times a day is still not helping. He feels exhausted when he goes home. He has had increased work load because of the COVID-19 virus. We will have the patient take hydrocodone 10 mg 1 p.o. total of 5 times daily. He will call us if he has any concerns. A script for his medications has been written. The patient will take the medication as prescribed. Should he have any concerns, he will call us. If he finds it has caused any problems with his sensorium, he will call us. <ELECTRONICALLY SIGNED> By: Tobias Núñez MD 10/13/19 1708 0842 [id number]. MD marti Schmidt
== END ==
LOC: M.PC 03:01
DX: M35.1 Other overlap syndromes (principal); E78.5 Hyperlipidemia, unspecified; I10 Essential (primary) hypertension

== ENCOUNTER → 2019-11-02 | Outpatient (CLI) | payer OTHER ==
--- NOTE | 2019-11-17 08:41 | PAINCON ---
[address] [address] PAIN MANAGEMENT CONSULTATION Name: ABBI KINCAID [facility] [id number] Admission: 11/02/19 Attend Phys: Tobias Núñez MD Discharge: Date of : 64 Report #: [id number] THIS REPORT FOR: //name// cc: Breanna Sanders Maggie M. DO ~ THIS REPORT FOR: //name// CC: Breanna Núñez DATE OF SERVICE: 11/02/2019 CHIEF COMPLAINT: Here for medication renewal. HISTORY: The patient is a 59-year-old gentleman who has been followed in the pain clinic. As you may recall, he has some significant arthritic changes ongoing. He suffers from rheumatoid arthritis. 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 He has noted some increased pain and discomfort in his joints. Has pain in his feet, toes are the worst. Has noticed pain in his knees, hands and has been experiencing some painful aching, by the end of the day, his pain has worsened. He continues to work. He is not taking Humira because of the Covid-19 pandemic. He rates his pain today as a 3/10. He feels that the hydrocodone is helpful. Feels that the gabapentin medication is helpful. Overall, he feels he is about 50% better with his current medical regimen. Notes that activity, walking, standing, bending, and twisting can be problematic. Uses medication as well as rest to help. Sometimes repositioning is helpful as well. ALLERGIES: No known drug allergies. CURRENT MEDICATIONS: Hydrocodone 10/325 one p.o. 5 times daily, Celebrex 200 mg, Lipitor 40 mg, lisinopril 10 mg, sulfasalazine 500 mg q.i.d., and gabapentin 600 mg t.i.d. PAIN CLINIC ASSESSMENT AND PQRS: 1. The patient has some findings of osteoarthritis and rheumatoid arthritis. It involves his hands, feet, and knees. He has been treated by assembler garment form. 2. Height 6 feet 0, weight 252 pounds, BMI is 34.2. 3. Vital signs: Blood pressure 143/93, heart rate 75, respiratory rate 16, room air saturation 95%, temperature 98.6. 4. Pain intensity is 3/10. 5. Fall history: The patient has not fallen in the last 3 months. 6. Blood thinner. The patient is not on a blood thinning medication. 7. Hypertension. The patient is being treated for hypertension. 8. Opioids greater than 6 weeks. The patient receives medication from the pain clinic. 9. Risk assessment tool, [place] [address] PAIN MANAGEMENT CONSULTATION Name: ABBI KINCAID Room: [facility]#: [id number] Admission: 11/02/19 Attend Phys: Tobias Núñez MD Discharge: Date of : 64 Report #: [id number] 10. Functional assessment tool reviewed. 11. Recreational drug use. The patient denies use of recreational drugs. 12. Tobacco: The patient denies use of smoking cigarettes, but does smoke a pipe. 13. Alcohol. The patient has decreased his use of alcoholic beverages to about once weekly. PHYSICAL EXAMINATION: GENERAL: The patient is a well-developed, well-nourished white male. Appears his stated age. He is alert and oriented x 3. His affect is appropriate. Speech is fluent. HEENT: Normocephalic, atraumatic. Extraocular eye muscles intact. Sclerae nonicteric. Mucous membranes are moist. NECK: Without adenopathy or JVD. HEART: Regular rate. ABDOMEN: Nontender. LUNGS: Generally clear to auscultation. EXTREMITIES: Upper extremity muscle strength judged to be 5/5 for the major muscle groups in the upper extremity. The patient has some soreness involving his hands. He has developed nodules on the third knuckles. The patient notes increased discoloration of his hands. Has had bilateral knee replacements. Continues to complain of some swelling in his feet. Has some discomfort in the top of his feet. He has some neuropathic complaints. IMPRESSION: 1. Mixed connective tissue disease. 2. Probable rheumatoid arthritis and osteoarthritis, which runs in his family. 3. Hyperlipidemia. 4. Hypertension. 5. Prediabetic diet. 6. Findings of his hands consistent with Raynaud's syndrome, particularly problematic in the cold winter months. RECOMMENDATIONS: We discussed treatment options with the patient. At this juncture, we will continue with his medications. He finds his medications are helpful. He will continue with gabapentin. He is able to think clearly with his medications. 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 He notes he becomes exhausted as time goes on during the day. He does feel that his medications are helpful. He has not had biologic agents. The Covid-19 pandemic is problematic. He has returned today for his medications. He will call us if he has any concerns. A script for his medications of gabapentin 600 mg 1 p.o. t.i.d. has been provided. The patient will also continue with hydrocodone 10/325 one p.o. total of 150 tablets and is able to take one q 4-6 hours p.r.n. for pain. [facility] [address] [place] [address] PAIN MANAGEMENT CONSULTATION Name: ABBI KINCAID [facility] [id number] Admission: 11/02/19 Attend Phys: Tobias Núñez MD Discharge: Date of : 64 Report #: [id number] We would like to thank you for letting us participate in his care. We hope he continues to improve. <ELECTRONICALLY SIGNED> By: Tobias Núñez MD 11/17/19 0841 [id number] [id number]. Prince Núñez MD /nt
== END ==
LOC: M.PC 04:50
PROVIDERS: ATTEND Anesthesiology Pain Medicine
DX: M06.9 Rheumatoid arthritis, unspecified (principal); M35.9 Systemic involvement of connective tissue, unspecified; E78.5 Hyperlipidemia, unspecified; I10 Essential (primary) hypertension; R73.03 Prediabetes; F10.10 Alcohol abuse, uncomplicated; F11.20 Opioid dependence, uncomplicated; Z79.899 Other long term (current) drug therapy

== ENCOUNTER → 2019-11-30 | Outpatient (CLI) | payer OTHER ==
--- NOTE | 2019-12-09 15:40 | PAINCON ---
[address] [address] PAIN MANAGEMENT CONSULTATION Name: ABBI KINCAID [facility] [id number] Admission: 11/30/19 Attend Phys: Tobias Núñez MD Discharge: Date of : 64 Report #: [id number] THIS REPORT FOR: //name// cc: Breanna Sanders Maggie M. DO ~ THIS REPORT FOR: //name// CC: BREANNA Segura DATE OF SERVICE: 11/30/2019 CHIEF COMPLAINT: Medicines still helping. HISTORY: The patient is a 59-year-old gentleman who has been followed in the Pain Clinic. He has significant arthritic changes in his hands. He suffers from rheumatoid arthritis. 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 He finds that these medications continue to be helpful. They are not affecting his ability to think. He is able to perform his job without problems. He is aware that the COVID-[address] He is not undergoing biological agents at this juncture. He realizes until it is important that he maintain an active immune system. He feels that the pain medications are helpful and feels his pain is about 50% better with the use of the medications. He has returned today with the hopes of having his medications renewed. ALLERGIES: No known drug allergies. CURRENT MEDICATIONS: Hydrocodone 10/325 one p.o. 5 times daily, Celebrex 200 mg, Lipitor 40 mg, lisinopril 10 mg, sulfasalazine 500 mg q.i.d., and gabapentin 600 mg t.i.d. PAIN CLINIC ASSESSMENT/PQRS: 1. The patient has some findings of osteoarthritis and rheumatoid arthritis. They involve his hands, feet and knees. He is being treated by a back roller. 2. Height 6 feet 0 inches, weight is 250 pounds, BMI is 33.9. 3. Vital signs: Blood pressure 134/83, heart rate 78, respiratory rate 16, room air saturation 94%, and temperature 98.3. 4. Pain intensity, 4/10. 5. Fall history: The patient has not fallen in the last 3 months. 6. Blood thinner. The patient is not on a blood thinning medication. 7. Hypertension. The patient is being treated for hypertension. 8. Opioids greater than 6 weeks. The patient received medication from the pain clinic. 9. Risk assessment tool, [place] [address] PAIN MANAGEMENT CONSULTATION Name: ABBI KINCAID Room: [facility]#: [id number] Admission: 11/30/19 Attend Phys: Tobias Núñez MD Discharge: Date of : 64 Report #: [id number] 10. Functional assessment tool reviewed. 11. Recreational drug use. The patient denies. 12. Tobacco: The patient denies use of tobacco. He does smoke a pipe. 13. Alcohol. The patient has an alcoholic beverage about once weekly. PHYSICAL EXAMINATION: GENERAL: The patient is a well-developed, well-nourished white male. Appears his stated age. He is alert and oriented x 3. His affect is appropriate. Speech is fluent. HEENT: Normocephalic, atraumatic. Extraocular eye muscles intact. Sclerae nonicteric. Mucous membranes are moist. NECK: Without adenopathy or JVD. HEART: Regular rate. ABDOMEN: Nontender. LUNGS: Generally clear to auscultation. EXTREMITIES: Upper extremity muscle strength is judged to be 5/5 for the major muscle groups in the upper extremity. The patient has soreness involving his hands. He has developed nodules on the third knuckles. The patient also notes some discoloration in the wintertime. Has bilateral knee replacements. Continues to complain of some swelling in his feet. Has discomfort in the top of his feet. Has some neuropathic complaints. IMPRESSION: 1. Mixed connective tissue disease. 2. Probable rheumatoid arthritis and osteoarthritis, which runs in the family. 3. Hyperlipidemia. 4. Hypertension. 5. Prediabetic diet. 6. Findings in his hands are consistent with Raynaud's syndrome, particularly in the winter months. RECOMMENDATIONS: We discussed treatment options with the patient. At this juncture, we will continue with his medications. He finds that they are helpful. A script for the medications have been provided. The patient is aware that opioid medications over time can become less effective as time goes on. He will continue with the use of the gabapentin medication. He states that these medications are all working and helpful. 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 A script for his medications of hydrocodone 10/325 one p.o. has been provided. The patient will also continue with gabapentin 600 mg 1 p.o. t.i.d. [place] [address] [place] [address] PAIN MANAGEMENT CONSULTATION Name: ABBI KINCAID Room: [facility]#: [id number] Admission: 11/30/19 Attend Phys: Tobias Núñez MD Discharge: Date of : 64 Report #: [id number] We would like to thank you for letting us participate in his care. We hope he continues to improve. <ELECTRONICALLY SIGNED> By: Tobias Núñez MD 12/09/19 1540 [id number] [id number]. Prince Núñez MD /nt
== END ==
LOC: M.PC 04:42
PROVIDERS: ATTEND Anesthesiology Pain Medicine
DX: M19.041 Primary osteoarthritis, right hand (principal); M19.042 Primary osteoarthritis, left hand; M35.9 Systemic involvement of connective tissue, unspecified; E78.5 Hyperlipidemia, unspecified; I10 Essential (primary) hypertension; Z71.3 Dietary counseling and surveillance; Z79.899 Other long term (current) drug therapy

== ENCOUNTER → 2019-12-28 | Outpatient (CLI) | payer OTHER ==
--- NOTE | 2019-12-29 09:00 | PAINCON ---
[facility] [address] [place] [address] PAIN MANAGEMENT CONSULTATION Name: ABBI KINCAID Room: [facility] VITOR LeeHeriberto#: [id number] Admission: 12/28/19 Attend Phys: Tobias Núñez MD Discharge: Date of : 64 Report #: [id number] THIS REPORT FOR: //name// cc: Breanna Sanders Maggie M. DO ~ THIS REPORT FOR: //name// CC: Breanna Núñez DATE OF SERVICE: 12/28/2019 CHIEF COMPLAINT: "The pain has been worse over the last few days. I am having more discomfort in the neck, hands, feet, knees." HISTORY: The patient is a 59-year-old gentleman who has been followed in the pain clinic because of chronic pain. He has significant problems associated with arthritis. He also suffers from rheumatoid arthritis. 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 He has noted some changes in the weather pattern. He notes that his pain is more problematic at this juncture. It waxes and wanes. He is having pain on the top of his feet, has more pain in his knees. He has pain that is affecting his hands. Has pain, which is affecting his back and neck area. He continues to work. He is staying at home. 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 He is not undergoing treatment with biological agents at this juncture. He feels that his medications continue to be helpful. He rates his pain as a 6/10 today. He would like to continue with his medications. They are not causing any problems. ALLERGIES: No known drug allergies. CURRENT MEDICATIONS: Hydrocodone 10/325 five times daily, Celebrex 200 mg, Lipitor 40 mg, lisinopril 10 mg, sulfasalazine 500 mg q.i.d., gabapentin 600 mg t.i.d. PAIN CLINIC ASSESSMENT AND PQRS: 1. The patient does have some findings of osteoarthritic changes and rheumatoid arthritis. They involve his hands, feet and knees. He is being treated by dinkey locomotive operator. 2. Height 6 feet 0, weight 251 pounds, BMI is 34. 3. Vital Signs: Blood pressure 140/57. 4. Heart rate 80, respiratory rate 20, room air saturation 94%, temperature 97.8. 5. Pain intensity 7/10. 6. Fall History: The patient has not fallen since we saw him last. 7. Blood Thinner: The patient is not on a blood thinning medication. 8. Hypertension: The patient is being [place] [address] PAIN MANAGEMENT CONSULTATION Name: ABBI KINCAID Room: [facility]#: [id number] Admission: 12/28/19 Attend Phys: Tobias Núñez MD Discharge: Date of : 64 Report #: [id number] 9. Opioids greater than 6 weeks: The patient receives medication from the pain clinic. 10. Risk assessment tool: Low for opioid use. 11. Functional assessment tool. 12. Recreational drug use: The patient denies. 13. Tobacco: The patient does smoke. 14. Alcohol: The patient has not smoked in the last 2 weeks. He feels that this makes his pain more problematic. PHYSICAL EXAMINATION: GENERAL: The patient is a well-developed, well-nourished white male. Appears his stated age. He is alert and oriented x 3. His affect is appropriate. Speech is fluent. HEENT: Normocephalic, atraumatic. Extraocular eye muscles intact. Sclerae nonicteric. Mucous membranes are moist. The patient is wearing a mask. NECK: Without adenopathy or JVD. The patient does complain of some increased pain in his neck. HEART: Regular rate. ABDOMEN: Nontender. LUNGS: Clear to auscultation. EXTREMITIES: Upper extremity muscle strength judged to be 5-/5 for the major muscle groups in the upper extremity. The patient has some soreness involving his hands. He is beginning to develop nodules on the third knuckles. The patient also has some discoloration in his hand. The patient has had knee replacements. He continues to have some swelling on the dorsum of his feet with discomfort. He has some neuropathic pain complaints. IMPRESSION: 1. Mixed connective tissue disease. 2. Probable rheumatoid arthritis and osteoarthritis, which runs in his family. 3. Hyperlipidemia. 4. Hypertension. 5. DM diet. 6. Findings in his hands are consistent with Raynaud's syndrome. RECOMMENDATIONS: We discussed treatment options with the patient. At this juncture, we will continue with his medications. He feels that medications are helpful. He feels that they are enabling him to stay active and gainfully employed. He notes that the pain medications too wear off. He is aware that opioid medications can become problematic for certain people. He has not shown any signs of addiction. He keeps his medications in a guarded area. A script for his medications have been provided and sent to his pharmacy. He will call us if he has any concerns. We would like to thank you for letting us participate in his care. We hope he continues to improve. A script for his medications of hydrocodone 10 mg [address] [id number] PAIN MANAGEMENT CONSULTATION Name: ABBI KINCAID Room: [facility] KARLOS Davion#: [id number] Admission: 12/28/19 Attend Phys: Tobias Núñez MD Discharge: Date of : 64 Report #: [id number] 5 times daily have been provided. A script also for gabapentin 600 mg tablets have been sent to his pharmacy. <ELECTRONICALLY SIGNED> By: Tobias Núñez MD 12/29/19 0900 0932 [id number]. Prince Núñez MD /nt
== END ==
LOC: M.PC 05:06
PROVIDERS: ATTEND Anesthesiology Pain Medicine
DX: M54.2 Cervicalgia (principal); G89.4 Chronic pain syndrome; M35.9 Systemic involvement of connective tissue, unspecified; E78.5 Hyperlipidemia, unspecified; I10 Essential (primary) hypertension; E11.9 Type 2 diabetes mellitus without complications; I73.00 Raynaud's syndrome without gangrene

== ENCOUNTER → 2020-01-25 | Outpatient (CLI) | payer OTHER ==
--- NOTE | ~2020-01-25 | PAINCON ---
[facility] [address] [place] [address] PAIN MANAGEMENT CONSULTATION Name: ABBI KINCAID Room: [facility] Davion#: [id number] Admission: 01/25/20 Attend Phys: Tobias Núñez MD Discharge: Date of : 64 Report #: [id number] THIS REPORT FOR: //name// cc: Breanna Sanders Maggie M. DO ~ THIS REPORT FOR: //name// CC: Breanna Núñez DATE OF SERVICE: 01/25/2020 CHIEF COMPLAINT: "I went to [place] and things were better, but now I have come back home. My joints have increased in pain." HISTORY: The patient is a 59-year-old gentleman who has been followed in the pain clinic. He suffers from rheumatoid arthritis. 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 He went on vacation to [place] last week. He notes that his pain significantly improved while he was in [place]. He has returned to [place] and has noticed that his pain has increased again. He notes that he has pain in his feet and knees. It also continues affect his hands. He has back and neck discomfort. He rates his pain as 6/10. He feels that his medications of hydrocodone, Celebrex and gabapentin continue to be helpful. He would like to continue with his medications. He has come in for renewal. Overall, things are about 50% improved with his current medical management. ALLERGIES: No known drug allergies. CURRENT MEDICATIONS: Hydrocodone 10/325 one p.o. q. 4 hours p.r.n., Celebrex 200 mg, Lipitor 40 mg, lisinopril 100 mg, sulfasalazine 500 mg q.i.d., gabapentin 600 mg t.i.d. PAIN CLINIC ASSESSMENT AND PQRS: 1. The patient does have some findings of osteoarthritis changes as well as rheumatoid arthritis. They involve his hands, feet and knees. He is being followed by wave guide assembler. 2. Height 6 feet 0, weight 256 pounds, BMI is 35.1. 3. Vital Signs: Blood pressure 142/81, pulse 80, respiratory rate 16, room air saturation 95%, temperature 98.3. 4. Pain intensity 6/10. 5. Fall history: The patient has not fallen in the last 3 months. 6. Blood thinner. The patient is not on a blood thinning medication. 7. Hypertension. The patient is being treated for hypertension. 8. Opioids greater than 6 weeks. The patient received medication from the pain clinic. 9. Risk assessment tool, [place] [id number] PAIN MANAGEMENT CONSULTATION Name: ABBI KINCAID Room: [facility]#: [id number] Admission: 01/25/20 Attend Phys: Tobias Núñez MD Discharge: Date of : 64 Report #: [id number] 10. Functional assessment tool. 11. Recreational drug use. The patient denies. 12. Tobacco: The patient does smoke cigarettes. 13. Alcohol: The patient drinks alcohol about biweekly. PHYSICAL EXAMINATION: GENERAL: The patient is a well-developed, well-nourished white male. Appears his stated age. He is alert and oriented x 3. His affect is appropriate. Speech is fluent. HEENT: Normocephalic, atraumatic. Extraocular eye muscles are intact. Sclerae nonicteric. Mucous membranes are moist. The patient is wearing a mask. NECK: Without adenopathy or JVD. The patient does complain of some increased pain in his neck. HEART: Regular rate. ABDOMEN: Nontender. EXTREMITIES: Upper extremity muscle strength judged to be 5-/5 for the major muscle groups in the upper extremity. He has some changes in his hands consistent with rheumatoid arthritis with development of nodules on his third knuckle. The patient has some discoloration in his hands as well. Lower extremity, the patient has had bilateral knee replacements. He continues to complain of some swelling in the dorsum of his feet. He has some neuropathic complaints as well. IMPRESSION: 1. Mixed connective tissue disease. 2. Probable rheumatoid arthritis and osteoarthritis, which "runs in his family." 3. Hyperlipidemia. 4. Hypertension. 5. Diabetes mellitus, treated with diet. 6. Findings consistent with Raynaud's syndrome in the winter. RECOMMENDATIONS: We discussed treatment options with the patient. At this juncture, we will continue with his medications. A script for hydrocodone 10/325 one p.o. q 4 hours has been provided. The patient will also continue with Celebrex. He will continue to monitor his GI tract in regards to use of the Celebrex. He feels gabapentin is helpful. He will take 600 mg 1 p.o. t.i.d. He feels that these medications are helpful and his pain control is about 50% with the current medical regimen. He is being mindful of the COVID-19 pandemic, which has become more problematic here in [place] and [place]. He will call us if he has any concerns with his medications. We would like to thank you for letting us participate in his care. He will [facility] [address] [address] PAIN MANAGEMENT CONSULTATION Name: GALE KINCAIDBea Bird Room: [facility]#: [id number] Admission: 01/25/20 Attend Phys: Tobias Núñez MD Discharge: Date of : 64 Report #: [id number] follow up in about a month. 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 By: [id number]. Prince Núñez MD /nt
== END ==
LOC: M.PC 08:50
PROVIDERS: ATTEND Anesthesiology Pain Medicine
DX: M06.9 Rheumatoid arthritis, unspecified (principal); M35.9 Systemic involvement of connective tissue, unspecified; E78.5 Hyperlipidemia, unspecified; I10 Essential (primary) hypertension; E11.9 Type 2 diabetes mellitus without complications; F11.20 Opioid dependence, uncomplicated; Z79.899 Other long term (current) drug therapy

== ENCOUNTER → 2020-02-22 | Outpatient (CLI) | payer OTHER ==
[~2020-02-22] MED LIST changes: +AMITRIPTYLINE H10 M1 PO
--- NOTE | ~2020-02-22 | PAINCON ---
[facility] [address] [place] [address] PAIN MANAGEMENT CONSULTATION Name: ABBI KINCAID [facility] [id number] Admission: 02/22/20 Attend Phys: Tobias Núñez MD Discharge: Date of : 64 Report #: [id number] THIS REPORT FOR: //name// cc: Breanna Sanders Maggie M. DO ~ THIS REPORT FOR: //name// CC: Breanna Núñez DATE OF SERVICE: 02/22/2020 PRIMARY CARE PHYSICIAN: Dr. Breanna Sanders. CHIEF COMPLAINT: Continued arthritis pain. HISTORY: The patient is a 59-year-old gentleman who has been followed in the pain clinic. As you may recall, he has a history of rheumatoid arthritis. 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 He has continued to have pain in his knees, feet and hands. He notes that pain increases when there is rainy weather. He rates his pain today as a 6/10. He does have some difficulty falling asleep because of the pain. Overall, he feels his pain medications helped about 50%. Pain is exacerbated with prolonged sitting. He notes that rest can be beneficial. He is taking his medication as prescribed. He feels that the combination of hydrocodone, Celebrex and gabapentin continue to be helpful. He is not having any problems with his thinking. 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 ALLERGIES: No known drug allergies. CURRENT MEDICATIONS: Hydrocodone 10/325 one p.o. q. 4 hours, Celebrex 200 mg, Lipitor 40 mg, lisinopril 100 mg, sulfasalazine 500 mg q.i.d., and gabapentin 600 mg t.i.d. PAIN CLINIC ASSESSMENT AND PQRS: 1. The patient has had some findings of osteoarthritis as well as rheumatoid arthritis. They involve his hands, feet and knees. He is being followed by manager of supply chain. 2. Height 6 feet 0, weight 254 pounds, BMI is 34. 3. Vital signs: Blood pressure 156/87, heart rate 87, respiratory rate is 16, room air saturation 94%, temperature 98.3. 4. Pain intensity 6/10. 5. Fall history: The patient has not fallen in the last 3 months. 6. Blood thinner. The patient is not on a blood thinning medication. 7. Hypertension. The patient is being treated for hypertension. 8. Opioids greater than 6 weeks. The patient receives medication [place] [address] PAIN MANAGEMENT CONSULTATION Name: ABBI KINCAID Room: [facility]#: [id number] Admission: 02/22/20 Attend Phys: Tobias Núñez MD Discharge: Date of : 64 Report #: [id number] 9. Risk assessment tool, low for opioid use. 10. Functional assessment tool, reviewed. 11. Recreational drug use. The patient denies. 12. Tobacco: The patient does smoke cigarettes. 13. Alcohol: The patient drinks biweekly. PHYSICAL EXAMINATION: GENERAL: The patient is a well-developed, well-nourished white male. Appears his stated age. He is alert and oriented x 3. His affect is appropriate. Speech is fluent. HEENT: Normocephalic, atraumatic. Extraocular eye muscles intact. Sclerae nonicteric. Mucous membranes are moist. The patient is wearing a facial covering. NECK: Without adenopathy or JVD. The patient also complains of some increased pain in his neck. HEART: Regular rate. LUNGS: Clear. ABDOMEN: Nontender. EXTREMITIES: Upper extremity muscle strength judged to be 5/5 for the major muscle groups in the upper extremity. The patient has some changes in his hands, which are consistent with rheumatoid arthritis with development of nodules on his knuckles. The patient has some discoloration in his hands. Has pain in his lower extremities and in his knees bilaterally, they have been replaced. Continues to have pain on the dorsum of his feet. Has some neuropathic component pain as well. IMPRESSION: 1. Mixed connective tissue disease. 2. Probable rheumatoid arthritis and osteoarthritis, which "runs in his family." 3. Hyperlipidemia. 4. Hypertension. 5. Diabetes mellitus, treated with diet. 6. Findings consistent with Raynaud's syndrome problematic in the winter. RECOMMENDATIONS: We discussed treatment options with the patient. At this juncture, we will continue with his medications. The risks and benefits of opioid medications again were reviewed. Opioid medications can become less effective as time goes on because of development of tolerance. He feels the medications are helpful. He is able to think clearly. 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 A script for his medication of gabapentin 600 mg 1 p.o. t.i.d. has been rewritten. He will also continue with hydrocodone 10/325 one p.o. q. 4-6 hours. He will also continue with Celebrex 200 mg daily and note the effect on his GI tract. [facility] [address] [place] [address] PAIN MANAGEMENT CONSULTATION Name: ABBI KINCAID Room: [facility]#: [id number] Admission: 02/22/20 Attend Phys: Tobias Núñez MD Discharge: Date of : 64 Report #: [id number] We would like to thank you for letting us participate in his care. He feels medications help with his pain by about 50%. By: [id number]. Prince Núñez MD /KESHIA
== END ==
LOC: M.PC 08:43
PROVIDERS: ATTEND Anesthesiology Pain Medicine
DX: M35.9 Systemic involvement of connective tissue, unspecified (principal); M19.90 Unspecified osteoarthritis, unspecified site; E78.5 Hyperlipidemia, unspecified; I10 Essential (primary) hypertension; F17.210 Nicotine dependence, cigarettes, uncomplicated; F11.20 Opioid dependence, uncomplicated; Z79.899 Other long term (current) drug therapy

== ENCOUNTER → 2020-03-21 | Outpatient (CLI) | payer OTHER ==
[~2020-03-21] MED LIST changes: +MEDROLDOSEPACK PO
--- NOTE | ~2020-03-21 | PAINCON ---
[facility] [address] [place] [address] PAIN MANAGEMENT CONSULTATION Name: ABBI KINCAID [facility] [id number] Admission: 03/21/20 Attend Phys: Tobias Núñez MD Discharge: Date of : 64 Report #: [id number] THIS REPORT FOR: //name// cc: Breanna Sanders Maggie M. DO ~ THIS REPORT FOR: //name// CC: Breanna Núñez DATE OF SERVICE: 03/21/2020 CHIEF COMPLAINT: This has been a really tough month. HISTORY: The patient is a 59-year-old gentleman who suffers from worsening rheumatoid arthritis. 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 He has been having pain, which has been quite debilitating at this juncture. His right hand is swollen. He has had difficulty moving. He notes back and leg pain. He has noticed that because of the change in weather pattern going from hot to cold and changes in the barometric pressure this has made his pain quite uncomfortable. Over the last 2 weeks, he is described it as terrible involving his joints. He feels that the hydrocodone has not been working as well. 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 He states that the tax adjuster is trying to make changes to his medications with the hopes that this would improve his situation. ALLERGIES: No known drug allergies. CURRENT MEDICATIONS: Hydrocodone 10/325 one p.o. q. 4 hours, Celebrex 200 mg, Lipitor 40 mg, lisinopril 100 mg, sulfasalazine 500 mg q.i.d., and gabapentin 600 mg t.i.d. PAIN CLINIC ASSESSMENT AND PQRS: 1. The patient does have some findings of osteoarthritis as well as rheumatoid arthritis. He is having pain and discomfort involving his hands, feet and knees. He is also noting some weakness because of the severity of his pain. 2. Height 6 feet 0, weight 255 pounds, BMI 34. 3. Vital Signs: Blood pressure 148/100, heart rate 84, respiratory rate 16, room air saturation 94%, temperature 98.5. 4. Pain intensity 10. 5. Fall history: The patient has not fallen in the last 3 months. 6. Blood thinner. The patient is not on a blood thinning medication. 7. Hypertension. The patient is being treated for hypertension. 8. Opioids greater than 6 weeks. The patient receives medication [place] [address] PAIN MANAGEMENT CONSULTATION Name: ABBI KINCAID Room: [facility]#: [id number] Admission: 03/21/20 Attend Phys: Tobias Núñez MD Discharge: Date of : 64 Report #: [id number] 9. Risk assessment tool, low for opioid use. 10. Functional assessment tool reviewed. 11. Recreational drug use. The patient denies. 12. Tobacco: The patient does smoke cigarettes. 13. Alcohol. The patient drinks alcohol by weekly. PHYSICAL EXAMINATION: GENERAL: The patient is a well-developed, well-nourished white male. Appears his stated age. He is alert and oriented x 3. His affect is appropriate. Speech is fluent. HEENT: Normocephalic, atraumatic. Extraocular eye muscles intact. Sclerae nonicteric. Mucous membranes are moist. The patient is wearing a facial covering. NECK: Without adenopathy or JVD. The patient complains of some pain in the neck. HEART: Regular rate. LUNGS: Clear. ABDOMEN: Nontender. EXTREMITIES: Upper extremity muscle strength judged to be 5-/5 for the major muscle groups in the upper extremity. 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 He does have some development of rheumatoid arthritis, nodules on his knuckles. He has some discoloration in his hands. The patient has some lower extremity knee pain bilaterally. He gets up from the chair very slowly using both hands and then walks extremely slow. He complains of pain like barbed wire wrapped around his leg. He feels as though his feet are about to explode. He notes significant swelling in his hands. IMPRESSION: 1. Mixed connective tissue disease. 2. Probable rheumatoid arthritis and osteoarthritis, which is problematic in his family. 3. Hyperlipidemia. 4. Hypertension. 5. Diabetes mellitus, treated with diet. 6. Findings consistent with Raynaud's syndrome and more problematic in the winter. RECOMMENDATIONS: We discussed treatment options with the patient. At this juncture, we will continue with his medications. A script for his medications has been written. The patient will take Elavil 20 mg at bedtime. Hopefully, this will help with his pain as well as improve his sleep. The patient will also continue with gabapentin 600 mg. He will take 600 mg a.m., 600 mg midday and 2 tablets 1200 mg at bedtime. He will continue with hydrocodone 10/325 one p.o. q. 4-6 hours as needed. The patient will also continue with Celebrex. He will monitor his GI tract. Should he note some pain and discomfort in the GI [place] [address] PAIN MANAGEMENT CONSULTATION Name: ABBI KINCAID Room: [facility] Davion#: [id number] Admission: 03/21/20 Attend Phys: Tobias Núñez MD Discharge: Date of : 64 Report #: [id number] tract, he will consider decreasing use of Celebrex. We would like to thank you for letting us participate in his care. We hope he continues to improve. The patient will follow up in a bimonthly fashion at this juncture. He has been consistent and use of his medications with no problems. By: [id number]. Prince Núñez MD /nt
== END ==
LOC: M.PC 09:00
PROVIDERS: ATTEND Anesthesiology Pain Medicine
DX: M06.9 Rheumatoid arthritis, unspecified (principal); I10 Essential (primary) hypertension; E78.5 Hyperlipidemia, unspecified; E11.9 Type 2 diabetes mellitus without complications; M35.9 Systemic involvement of connective tissue, unspecified; Z79.899 Other long term (current) drug therapy

== ENCOUNTER → 2020-05-16 | Outpatient (CLI) | payer OTHER ==
[~2020-05-16] MED LIST changes: +METHADONE HCL 110 M1 PO
== END ==
LOC: M.PC 08:03
PROVIDERS: ATTEND Anesthesiology Pain Medicine
DX: M35.9 Systemic involvement of connective tissue, unspecified (principal); E78.5 Hyperlipidemia, unspecified; I10 Essential (primary) hypertension; E11.9 Type 2 diabetes mellitus without complications; Z88.8 Allergy status to other drugs, medicaments and biological substances; Z79.899 Other long term (current) drug therapy

== ENCOUNTER → 2020-06-13 | Outpatient (CLI) | payer OTHER ==
[~2020-06-13] MED LIST changes: +PERCOCET 10-321 EACH PO
== END ==
LOC: M.PC 08:16
PROVIDERS: ATTEND Anesthesiology Pain Medicine
DX: M19.90 Unspecified osteoarthritis, unspecified site (principal); E78.5 Hyperlipidemia, unspecified; I10 Essential (primary) hypertension; E11.9 Type 2 diabetes mellitus without complications; M35.1 Other overlap syndromes; Z88.8 Allergy status to other drugs, medicaments and biological substances; Z79.899 Other long term (current) drug therapy

== ENCOUNTER → 2020-07-11 | Outpatient (CLI) | payer OTHER ==
[~2020-07-11] MED LIST changes: +AMITRIPTYLINE H25 M3 PO; +CENTRUM SILVER1 EAC4 PO; +IBUPROFEN 600600 M1 PO; +NORVASC 2.5 MG2.5 M1 PO; +PLAQUENIL200 MG PO; +TERBINAFINE HC250 MG PO; +XELJANZ XR11 MG PO
== END ==
LOC: M.PC 07:54
PROVIDERS: ATTEND Anesthesiology Pain Medicine
DX: L94.9 Localized connective tissue disorder, unspecified (principal); E78.5 Hyperlipidemia, unspecified; I10 Essential (primary) hypertension; R73.03 Prediabetes; Z88.8 Allergy status to other drugs, medicaments and biological substances; Z79.899 Other long term (current) drug therapy

== ENCOUNTER → 2020-08-08 | Outpatient (CLI) | payer OTHER ==
[~2020-08-08] MED LIST changes: +PERCOCET 10-321 EAC1 PO
== END ==
LOC: M.PC 09:43
PROVIDERS: ATTEND Anesthesiology Pain Medicine
DX: L94.9 Localized connective tissue disorder, unspecified (principal); E78.5 Hyperlipidemia, unspecified; I10 Essential (primary) hypertension; R73.03 Prediabetes

== ENCOUNTER → 2020-10-03 | Outpatient (CLI) | payer OTHER ==
[~2020-10-03] MED LIST changes: +AMITRIPTYLINE H75 M2 PO
== END ==
LOC: M.PC 09:37
PROVIDERS: ATTEND Anesthesiology Pain Medicine
DX: M06.9 Rheumatoid arthritis, unspecified (principal); G89.29 Other chronic pain; M35.1 Other overlap syndromes; E11.9 Type 2 diabetes mellitus without complications; I10 Essential (primary) hypertension; E78.5 Hyperlipidemia, unspecified; I73.00 Raynaud's syndrome without gangrene

== ENCOUNTER → 2020-11-28 | Outpatient (CLI) | payer OTHER | LOC: M.PC 09:33 | PROVIDERS: ATTEND Anesthesiology Pain Medicine | DX: M35.9 Systemic involvement of connective tissue, unspecified (principal); I10 Essential (primary) hypertension; E78.5 Hyperlipidemia, unspecified; Z79.899 Other long term (current) drug therapy; Z79.891 Long term (current) use of opiate analgesic ==

== ENCOUNTER → 2021-01-23 | Outpatient (CLI) | payer OTHER | LOC: M.PC 09:28 | PROVIDERS: ATTEND Anesthesiology Pain Medicine | DX: I10 Essential (primary) hypertension (principal); E78.5 Hyperlipidemia, unspecified; E11.9 Type 2 diabetes mellitus without complications; Z79.899 Other long term (current) drug therapy ==

== ENCOUNTER → 2021-03-20 | Outpatient (CLI) | payer OTHER | LOC: M.PC 08:09 | PROVIDERS: ATTEND Anesthesiology Pain Medicine | DX: M25.569 Pain in unspecified knee (principal); E78.5 Hyperlipidemia, unspecified; I10 Essential (primary) hypertension; E11.9 Type 2 diabetes mellitus without complications; M35.9 Systemic involvement of connective tissue, unspecified; Z79.899 Other long term (current) drug therapy ==

== ENCOUNTER → 2021-05-15 | Outpatient (CLI) | payer OTHER ==
[~2021-05-15] MED LIST changes: +BENADRYL25 MG PO; +ENBREL25 MG/0.5 SUBQ
== END ==
LOC: M.PC 08:18
PROVIDERS: ATTEND Anesthesiology Pain Medicine
DX: M35.1 Other overlap syndromes (principal); E78.5 Hyperlipidemia, unspecified; I10 Essential (primary) hypertension; E11.9 Type 2 diabetes mellitus without complications; Z79.899 Other long term (current) drug therapy

== ENCOUNTER → 2021-07-10 | Outpatient (CLI) | payer OTHER | LOC: M.PC 08:20 | PROVIDERS: ATTEND Anesthesiology Pain Medicine | DX: M79.671 Pain in right foot (principal); M79.672 Pain in left foot; M25.569 Pain in unspecified knee; I10 Essential (primary) hypertension; E78.5 Hyperlipidemia, unspecified; E11.9 Type 2 diabetes mellitus without complications; M19.90 Unspecified osteoarthritis, unspecified site ==